=== PATIENT | female | born 1955 | race Caucasian/White ===

== ENCOUNTER 2018-05-09 15:22 | Observation (INO) ==
[2018-05-09] MEDS ORDERED: MORPHINE SULFATE 2 MG/ML DISP.SYRIN IV ONE (15:35)
[2018-05-09] MEDS ORDERED: MORPHINE SULFATE 2 MG/ML DISP.SYRIN ONE (15:42)
[2018-05-09 15:58] LABS: Hematocrit 46.1 % (37.0-47.0); Hemoglobin 15.2 gm/dL (12.5-16.0); Mean Cell Volume 87.1 fl (78-100); Mean Corpuscular Hemoglobin 28.7 pg (27-31); Mean Platelet Volume 8.7 fl (8-12.5); Neutrophil # 6.4 K/mm3 (1.3-6.0); Neutrophil % 72.1 % (42-75.0); Platelet Count 398 K/mm3 (150-450); Red Blood Count 5.29 M/mm3 (4.2-5.4); Red Cell Distribution Width 13.4 % (11.5-14.0); White Blood Count 8.8 K/mm3 (4.0-10.5)
[2018-05-09 16:10] LABS: ALT 13 U/L (19-67); AST 12 U/L (0-48); Albumin * 3.6 gm/dl (3.4-5.0); Alkaline Phosphatase * 106 U/L (50-170); Anion Gap 9.9 mmol/L (6.8-13.8); BUN/Creatinine Ratio 2.9 (9.0-21.6); Bilirubin, Total 0.6 mg/dL (0.0-1.1); Blood Urea Nitrogen 2 mg/dL (3-23); Ca. Corrected For Albumin 9.2 mg/dL (8.4-10.2); Calcium * 9.2 mg/dL (7.9-10.9); Carbon Dioxide 29.9 mmol/L (24-32.6); Chloride 100 mmol/L (97-106); Glucose * 103 mg/dL (70-110); Lipase 109 U/L (73-393); Potassium 3.8 mmol/L (3.4-4.6); Sodium 136 mmol/L (132-142); Total Protein 7.4 gm/dL (6.2-8.2); Troponin I Less than 0.017 ng/mL (0.00-0.10)
[2018-05-09] MEDS ORDERED: ONDANSETRON HCL/PF 2 MG/ML VIAL IV ONE (16:26)
[2018-05-09] MEDS ORDERED: ONDANSETRON HCL/PF 2 MG/ML VIAL ONE (16:26)
[2018-05-09] MEDS ORDERED: HYDROmorphone HCL 1 MG/ML DISP.SYRIN IV ONE ×2 (16:27→19:25)
[2018-05-09] MEDS ORDERED: HYDROmorphone HCL 1 MG/ML DISP.SYRIN ONE ×2 (16:45→19:27)
[2018-05-09] MEDS ORDERED: NORMAL SALINE 1,000 ML IV PRN (17:10)
[2018-05-09] MEDS ORDERED: ALBUTEROL SULFATE/IPRATROPIUM 3 ML NEBU IH ONE ×2 (17:22→17:38)
[2018-05-09 17:27] LABS: Urine Bilirubin Negative (NEGATIVE); Urine Blood 25 /ul (NEGATIVE); Urine Ketone Negative (NEGATIVE); Urine Nitrite Negative (NEGATIVE); Urine Protein Negative (NEGATIVE); Urine Urobilinogen Normal (NORMAL)
[2018-05-09 17:34] LABS: Urine Appearance Clear (CLEAR); Urine Bacteria TRACE; Urine Color Yellow; Urine RBC TRACE /hpf (0-5); Urine WBC TRACE /hpf (0-5)
[2018-05-09] MEDS ORDERED: METHYLPREDNISOLONE SOD SUCC/PF 40 MG/ML VIAL IV ONE (17:54)
[2018-05-09] MEDS ORDERED: METHYLPREDNISOLONE SOD SUCC/PF 40 MG/ML VIAL ONE (17:58)
[2018-05-09] MEDS ORDERED: ALBUTEROL SULFATE 2.5 MG/0.5 ML VIAL.NEB IH ONE ×2 (18:22→18:25)
--- NOTE | 2018-05-09 19:49 | ERNOTE ---
Chest Pain/Cardiac HPI Date of Service: 05/09/18 Chief Complaint: Chest Pain Time Seen by Provider: 05/09/18 15:30 Source: patient Exam Limitations: no limitations Immunizations: IMMUNIZATION HX Immunizations Up to Date No History of Influenza Vaccine No Hx Pneumococcal Vaccination No Allergies/Adverse Reactions: Allergies ketorolac tromethamine [From Toradol] Allergy (Intermediate, Verified 11/15/15 08:40) HIVES, BREATHING PROBLEMS Home Medications: HOME MEDICATIONS Aspirin [Aspirin Enteric Coated] 81 mg PO DAILY 11/04/15 [Last Taken Unknown] Cholecalciferol (Vitamin D3) [Vitamin D3] 2,000 unit PO DAILY 11/04/15 [Last Taken Unknown] Lansoprazole [Prevacid] 15 mg PO DAILY 11/04/15 [Last Taken Unknown] Simvastatin [Zocor] 40 mg PO HS 11/04/15 [Last Taken Unknown] losartan 50 mg tablet 50 mg PO DAILY #90 tab 03/05/18 [Last Taken Unknown] atorvastatin 40 mg tablet 40 mg PO DAILY #90 tab 03/20/18 [Last Taken Unknown] Narrative: Patient presents for CP for the last week. It is right sided and radiates across her chest. She also feel SOB with it. Family relates increasing trouble breathing and worsening generalized weakness to the point that she now cannot get around. She has not been seen for this. Gets occasional sharp abdominal pains. No hemoptysis. CP is severe and constant. Nothing really seems to make it better or worse. Timing: constant Severity/Quality: severe Location: other - see HPI Chest Pain Radiation: other - across chest Activities at Onset: none Modifying Factors - Improves: Present: nothing Modifying Factors - Worsens: Present: nothing Nitro Today/Relief: no nitro taken today Aspirin Treatment Today: 325 mg x 1 Associated Symptoms: Present: cough, abdominal pain, weakness. Absent: fever/ chills, vomiting Prior Treatment: Denies: recently seen Review of Systems - Review of Systems Constitutional: Absent: fever Respiratory: Present: shortness of breath Cardiology: Present: chest pain Gastrointestinal/Abdominal: Present: abdominal pain Genitourinary: Absent: dysuria Neurological: Present: weakness All Other Systems: All systems neg except as marked Medical History (Last Updated 05/09/18 @ 19:30 by Scott Mathews MD) Stroke Social History: Preferred Language Wolof Do you have any adventist or No cultural preference? Smoking Status Current every day smoker Abuse History No History of abuse Psych History No pertinent hx Alcohol Use none Drug Use none Physical Exam - Physical Exam General Appearance: Present: alert, other - mild distress d/t pain Head Exam: Present: normal inspection, no evidence of injury Eye Exam: Normal inspection: bilateral, PERRL: bilateral Ears, Nose, Throat: Present: normal ENT inspection Neck: Present: normal inspection Respiratory: Present: no accessory muscle use, other - faint wheezes Cardiovascular/Chest: Present: regular rate, rhythm, normal peripheral pulses Gastrointestinal/Abdominal: Present: normal bowel sounds, nontender, nondistended, soft Back Exam: Absent: CVA tenderness (R), CVA tenderness (L) Extremity Exam: Present: non-tender Neurological Exam: Present: alert, other - there is significant generalized weakness, no findings of acute stroke Skin Exam: Present: normal color, warm/dry ED Progress - Results and Orders Patient's Lab Results:: I have reviewed the patient's lab results. - Vital Signs Patient's Vital Signs:: I have reviewed the patient's vital signs. Vital Signs: Vital Signs 05/09/18 15:30 05/09/18 15:54 05/09/18 16:00 Temperature 36.8 C Pulse Rate 102 H 93 97 Respiratory Rate 16 Blood Pressure 142/98 H 155/98 H O2 Sat by Pulse Oximetry 94 05/09/18 16:48 05/09/18 17:05 05/09/18 17:39 Temperature Pulse Rate 82 84 82 Respiratory Rate 16 16 16 Blood Pressure 99/59 109/77 O2 Sat by Pulse Oximetry 89 L 92 L 98 05/09/18 17:45 05/09/18 18:08 05/09/18 18:26 Temperature Pulse Rate 83 96 91 Respiratory Rate 16 16 Blood Pressure 126/66 116/67 O2 Sat by Pulse Oximetry 99 90 L 93 05/09/18 18:28 05/09/18 18:52 Temperature Pulse Rate 91 87 Respiratory Rate 18 16 Blood Pressure 121/68 97/58 O2 Sat by Pulse Oximetry 91 L 96 - EKG EKG read: Interp. by me EKG Comments: NSR rate 99. Non-specific changes, no STEMI - X-Ray X-Ray #1 X-Ray: chest Interpretation: Interp. by me X-ray Comments: I reviewed official radiology report - CT/Ultrasound CT/Ultrasound Narrative: I reviewed official radiology report - Progress/Reassessment Chief Complaint: Chest Pain Progress Note-Subjective: 05/09/18 19:39 Patient was given IV solumedrol and nebs. With O2 sats 97%. I spoke with Dr Hines. Given the need for w/u of the mass it was felt she would need to be transferred. i called [facility] and Dr Archibald accepted transfer bt they are on bypass and cannot accept her until 7am tomorrow and they requested that we plan on initiating the transfer to [facility] at 7am tomorrow - she has already been accepted to [facility] and nursing just needs to call in the morning to let them know she is on her way. Given this Dr Hines agreed to admit the patient obs to care for her in the hospital setting until tomorrow as an obs patient. Patient and family understand and are agreeable. Departure Clinical Impression: Acute hypoxemic respiratory failure, Lung mass - Departure Disposition: Still a patient Condition: Fair
[2018-05-09] MEDS ORDERED: ALBUTEROL SULFATE/IPRATROPIUM 3 ML NEBU IH PRN (20:47)
--- NOTE | 2018-05-09 20:47 | HP ---
Chief Complaint - Chief Complaint Date of Service: 05/09/18 Time of Service: 20:25 Chief Complaint: chest pain/shortness of breath History of Present Illness: Cassi Ulloa, is a 61-year-old white female, patient of Dr. Simpson, with past medical history of hyperlipidemia, hypertension, CVA, tobacco abuse, who was admitted on 05/09/2018 because of chest pain and shortness of breath. The patient for the last 1 week has been having chest pain across her upper chest associated with shortness of breath and at times wheezing. The pain today got unbearable and so she went to our emergency room. She has not had a good appetite lately and has been losing weight. She described it as sharp 10 over 10 radiating to the lateral side of her right chest not associated with fever or chills. She is a smoker since she was 14 years old and has cut down on her cigarette consumption from 4 packs a day to 2 packs a day. She has been coughing thick sputum but mostly clear. She says she never knew she had COPD and was never on any inhalers or nebulizers. In the emergency room she was found to be hypoxic with oxygen saturation in the 80s. Her her ABG showed a pH of 7.40, PCO2 of 39.6 PO2 of 53.9, bicarbonate of 23.9, O2 sat of 88%. Her CXR showed -1. LOBULATED SOFT TISSUE MASS IN THE RIGHT UPPER LOBE LATERAL ASPECT WITH APPARENT BONY DESTRUCTIVE CHANGE OF THE ADJACENT RIB. RECOMMEND FURTHER CHARACTERIZATION WITH CT SCAN OF THE CHEST. 2. OTHERWISE NO ACUTE CARDIOPULMONARY ABNORMALITY IDENTIFIED. Her CTS showed-1. 4.6 MM PLEURAL-BASED NODULE IN THE RIGHT UPPER LOBE WITH ASSOCIATED INVASION AND DESTRUCTION OF THE ADJACENT RIGHT FOURTH RIB. THIS SUGGESTS A PLEURAL-BASED PRIMARY LUNG LESION. 2. 2 NODULAR DENSITIES WITHIN THE SUPERIOR SEGMENT OF THE RIGHT LOWER LOBE; METASTASIS VERSUS SECOND PRIMARY. 3. DIFFUSE CENTRILOBULAR EMPHYSEMATOUS CHANGES. 4. FOLLOW-UP PET/CT SCAN IS RECOMMENDED. She was given breathing treatment and 1 dose of IV solumedrol, O2 and then admited under observation for pain control and is for transfer to [facility] in the morning for further work up and treatment. Medical History (Last Updated 05/09/18 @ 22:54 by Iris Clay RN) GERD (gastroesophageal reflux disease) Heart murmur Stroke Surgical History: Surgical History (Last Updated 05/09/18 @ 22:53 by Iris Clay RN) H/O tubal ligation History of tonsillectomy Hx of cholecystectomy Family History: Family History (Last Updated 05/09/18 @ 23:02 by Iris Clay, RN) Sister Rheumatoid arthritis Brain tumor Kidney disease Lupus Heart problem Breast cancer Hypertension CVA (cerebral vascular accident) Brother Heart problem Brother CVA (cerebral vascular accident) Brother Brain tumor Mother Stomach cancer Father Myocardial infarction Social History: Preferred Language Albanian Do you have any anglican or No cultural preference? Smoking Status Current every day smoker Abuse History No History of abuse Psych History No pertinent hx Alcohol Use none Drug Use none Review Of Systems (GEN) - Review of Systems Generalized/Overall Review: Present: Weakness, Weight loss. Absent: Chills, Fever Respiratory: Present: Cough, Shortness of Breath. Absent: Orthopnea Cardiac: Present: Chest Pain. Absent: Edema, Palpitations Abdominal: Absent: Nausea, Vomiting Genitourinary: Absent: Urgency, Frequency Musculoskeletal: Absent: Joint Pain Immunizations: IMMUNIZATION HX Immunizations Up to Date No History of Influenza Vaccine No Hx Pneumococcal Vaccination No Allergies/Adverse Reactions: Allergies Allergy/AdvReac Type Severity Reaction Status Date / Time ketorolac tromethamine Allergy Intermediate HIVES, Verified 05/09/18 20:18 [From Toradol] BREATHING PROBLEMS lisinopril Allergy Intermediate Shortness Verified 05/09/18 20:19 of Breath Home Medications: HOME MEDICATIONS Aspirin [Aspirin Enteric Coated] 81 mg PO DAILY 11/04/15 [Last Taken Unknown] Cholecalciferol (Vitamin D3) [Vitamin D3] 2,000 unit PO DAILY 11/04/15 [Last Taken Unknown] Lansoprazole [Prevacid] 15 mg PO DAILY 11/04/15 [Last Taken Unknown] Atorvastatin Calcium 40 mg PO QPM 05/09/18 [Last Taken Unknown] Losartan Potassium [Cozaar] 50 mg PO QPM 05/09/18 [Last Taken 05/09/18 14:30 50 mg] Exam - Exam Vital Signs: Vital Signs - Last Taken Temp 36.8 C 05/09/18 15:30 Pulse 98 05/09/18 19:31 Resp 18 05/09/18 19:31 BP 107/65 05/09/18 19:31 Pulse Ox 91 L 05/09/18 19:31 Constitutional: Present: Alert, Oriented x3, Cooperative ENT Exam: Present: hearing grossly normal Eye Exam: bilateral eye: normal inspection, PERRL, EOMI Neck: Present: supple Respiratory: Present: decreased breath sounds, wheezing - occasional, No rales Cardiovascular/Chest: Present: regular rate, rhythm, no JVD, no murmur Abdomen: Present: Normal bowel sounds, soft, nontender, nondistended Extremity: Present: no pedal edema, no calf tenderness Diagnostic Studies: Abnormal Lab Results 05/09/18 05/09/18 05/09/18 Range/Units 15:45 15:45 16:55 Immature Gran % (Auto) 0.50 H (0.001-0.429) % Immature Gran # (Auto) 0.04 H (0.000-0.0310) K/mm3 Lymphocytes % 18.0 L (20-51) % Neutrophils # 6.4 H (1.3-6.0) K/mm3 pO2 (83.0-108.0) mmHg Total CO2 (19.0-24.0) mmol/L ABG O2 Sat (Measured) (94.0-98.0) % BUN 2 L (3-23) mg/dL BUN/Creatinine Ratio 2.9 L (9.0-21.6) ALT 13 L (19-67) U/L Urine Blood 25 H (NEGATIVE) /ul Urine WBC Trace H (0-5) /hpf 05/09/18 Range/Units Unknown Immature Gran % (Auto) (0.001-0.429) % Immature Gran # (Auto) (0.000-0.0310) K/mm3 Lymphocytes % (20-51) % Neutrophils # (1.3-6.0) K/mm3 pO2 53.9 L (83.0-108.0) mmHg Total CO2 25.1 H (19.0-24.0) mmol/L ABG O2 Sat (Measured) 88.1 L (94.0-98.0) % BUN (3-23) mg/dL BUN/Creatinine Ratio (9.0-21.6) ALT (19-67) U/L Urine Blood (NEGATIVE) /ul Urine WBC (0-5) /hpf Laboratory Results WBC 8.8 K/mm3 (4.0-10.5) 05/09/18 15:45 RBC 5.29 M/mm3 (4.2-5.4) 05/09/18 15:45 Hgb 15.2 gm/dL (12.5-16.0) 05/09/18 15:45 Hct 46.1 % (37.0-47.0) 05/09/18 15:45 MCV 87.1 fl (78-100) 05/09/18 15:45 MCH 28.7 pg (27-31) 05/09/18 15:45 MCHC 33.0 g/dl (32-36) 05/09/18 15:45 RDW 13.4 % (11.5-14.0) 05/09/18 15:45 Plt Count 398 K/mm3 (150-450) 05/09/18 15:45 MPV 8.7 fl (8-12.5) 05/09/18 15:45 Immature Gran % (Auto) 0.50 % (0.001-0.429) H 05/09/18 15:45 Immature Gran # (Auto) 0.04 K/mm3 (0.000-0.0310) H 05/09/18 15:45 Neutrophils % 72.1 % (42-75.0) 05/09/18 15:45 Lymphocytes % 18.0 % (20-51) L 05/09/18 15:45 Monocytes % 7.4 % (0.0-9) 05/09/18 15:45 Eosinophils % 1.5 % (0.0-3.0) 05/09/18 15:45 Basophils % 0.5 % (0.0-1.0) 05/09/18 15:45 Nucleated RBC % 0.0 k/mm3 (0-1) 05/09/18 15:45 Neutrophils # 6.4 K/mm3 (1.3-6.0) H 05/09/18 15:45 Lymphocytes # 1.59 k/mm3 (1.5-3.5) 05/09/18 15:45 Monocytes # 0.7 k/mm3 (0.0-1.0) 05/09/18 15:45 Eosinophils # 0.1 k/mm3 (0.0-0.7) 05/09/18 15:45 Absolute Basophils 0.0 k/mm3 (0.0-0.1) 05/09/18 15:45 D-Dimer 0.45 ug/mL (0.19-0.49) 05/09/18 15:45 pCO2 39.6 mmHg (32.0-45.0) 05/09/18 Unknown pO2 53.9 mmHg (83.0-108.0) L 05/09/18 Unknown HCO3 23.9 mmol/L (21.0-28.0) 05/09/18 Unknown Total CO2 25.1 mmol/L (19.0-24.0) H 05/09/18 Unknown Base Excess -0.8 mmol/L (-2.0-3.0) 05/09/18 Unknown ABG pH 7.40 (7.35-7.45) 05/09/18 Unknown ABG O2 Sat (Measured) 88.1 % (94.0-98.0) L 05/09/18 Unknown Sodium 136 mmol/L (132-142) 05/09/18 15:45 Plasma Sodium 136 mmol/L (130-142) 05/09/18 15:45 Potassium 3.8 mmol/L (3.4-4.6) 05/09/18 15:45 Chloride 100 mmol/L (97-106) 05/09/18 15:45 Carbon Dioxide 29.9 mmol/L (24-32.6) 05/09/18 15:45 Anion Gap 9.9 mmol/L (6.8-13.8) 05/09/18 15:45 BUN 2 mg/dL (3-23) L 05/09/18 15:45 Creatinine 0.69 mg/dL (0.4-1.4) 05/09/18 15:45 Est GFR (Non-Af Amer) 91 mL/min (60-130) 05/09/18 15:45 BUN/Creatinine Ratio 2.9 (9.0-21.6) L 05/09/18 15:45 Random Glucose 103 mg/dL (70-110) 05/09/18 15:45 Calcium 9.2 mg/dL (7.9-10.9) 05/09/18 15:45 Calcium Adj for Albumin 9.2 mg/dL (8.4-10.2) 05/09/18 15:45 Total Bilirubin 0.6 mg/dL (0.0-1.1) 05/09/18 15:45 AST 12 U/L (0-48) 05/09/18 15:45 ALT 13 U/L (19-67) L 05/09/18 15:45 Alkaline Phosphatase 106 U/L (50-170) 05/09/18 15:45 Troponin I Less than 0.017 ng/mL (0.00-0.10) 05/09/18 15:45 Total Protein 7.4 gm/dL (6.2-8.2) 05/09/18 15:45 Albumin 3.6 gm/dl (3.4-5.0) 05/09/18 15:45 Lipase 109 U/L (73-393) 05/09/18 15:45 Urine Color Yellow 05/09/18 16:55 Urine Appearance Clear (CLEAR) 05/09/18 16:55 Urine pH 6.0 pH (5.0-7.0) 05/09/18 16:55 Ur Specific [place] 1.010 SP.GR. (1.005-1.010) 05/09/18 16:55 Urine Protein Negative mg/dL (NEGATIVE) 05/09/18 16:55 Urine Glucose (UA) Negative mg/dL (NEGATIVE) 05/09/18 16:55 Urine Ketones Negative mg/dL (NEGATIVE) 05/09/18 16:55 Urine Blood 25 /ul (NEGATIVE) H 05/09/18 16:55 Urine Nitrate Negative (NEGATIVE) 05/09/18 16:55 Urine Bilirubin Negative mg/dl (NEGATIVE) 05/09/18 16:55 Urine Urobilinogen Normal EU/dl (NORMAL) 05/09/18 16:55 Ur Leukocyte Esterase Negative /ul (NEGATIVE) 05/09/18 16:55 Urine RBC Trace /hpf (0-5) 05/09/18 16:55 Urine WBC Trace /hpf (0-5) H 05/09/18 16:55 Ur Epithelial Cells Trace /hpf (0-5) 05/09/18 16:55 Urine Bacteria Trace (NONE) 05/09/18 16:55 Urine Culture Comments Culture to follow 05/09/18 16:55 Assessment/Plan - Assessment/Plan (1) Acute hypoxemic respiratory failure Assessment: due to COPD exacerbation /lung mass Problem: Acute (2) Lung mass Problem: Acute (3) COPD (chronic obstructive pulmonary disease) Assessment: continue with O2 breathing treatment PRN Problem: Chronic Qualifiers: COPD type: emphysema Emphysema type: centrilobular Qualified Code(s): J43.2 - Centrilobular emphysema (4) Hypertension Problem: Chronic Qualifiers: Hypertension type: essential hypertension Qualified Code(s): I10 - Essential (primary) hypertension (5) Hyperlipidemia Problem: Chronic (6) History of CVA (cerebrovascular accident) Problem: Chronic
[2018-05-09] MEDS ORDERED: ALBUTEROL SULFATE 200 PUFF INHALER IH PRN (20:48)
[2018-05-09] MEDS ORDERED: ACETAMINOPHEN 325 MG TABLET PO PRN (20:51)
[2018-05-10] MEDS: HYDROmorphone HCL 1 MG/ML DISP.SYRIN IV PRN ×2 (00:56→07:51)
[2018-05-10] MEDS ORDERED: ALBUTEROL SULFATE 2.5 MG/0.5 ML VIAL.NEB IH PRN (07:12)
--- NOTE | 2018-05-10 08:19 | DS ---
Transfer Discharge Summary - Diagnosis(s)/Problems (1) Acute hypoxemic respiratory failure Problem: Resolved (2) Lung mass Problem: Acute (3) COPD (chronic obstructive pulmonary disease) Problem: Chronic (4) Hypertension Problem: Chronic (5) Hyperlipidemia Problem: Chronic (6) History of CVA (cerebrovascular accident) Problem: Chronic - Course Description of Stay: Cassi Ulloa, is a 61-year-old white female, patient of Dr. Simpson, with past medical history of hyperlipidemia, hypertension, CVA, tobacco abuse, who was admitted on 05/09/2018 because of chest pain and shortness of breath. The patient for the last 1 week has been having chest pain across her upper chest associated with shortness of breath and at times wheezing. The pain today got unbearable and so she went to our emergency room. She has not had a good appetite lately and has been losing weight. She described it as sharp 10 over 10 radiating to the lateral side of her right chest not associated with fever or chills. She is a smoker since she was 14 years old and has cut down on her cigarette consumption from 4 packs a day to 2 packs a day. She has been coughing thick sputum but mostly clear. She says she never knew she had COPD and was never on any inhalers or nebulizers. In the emergency room she was found to be hypoxic with oxygen saturation in the 80s. Her her ABG showed a pH of 7.40, PCO2 of 39.6 PO2 of 53.9, bicarbonate of 23.9, O2 sat of 88%. Her CXR showed -1. LOBULATED SOFT TISSUE MASS IN THE RIGHT UPPER LOBE LATERAL ASPECT WITH APPARENT BONY DESTRUCTIVE CHANGE OF THE ADJACENT RIB. RECOMMEND FURTHER CHARACTERIZATION WITH CT SCAN OF THE CHEST. 2. OTHERWISE NO ACUTE CARDIOPULMONARY ABNORMALITY IDENTIFIED. Her CTS showed-1. 4.6 MM PLEURAL-BASED NODULE IN THE RIGHT UPPER LOBE WITH ASSOCIATED INVASION AND DESTRUCTION OF THE ADJACENT RIGHT FOURTH RIB. THIS SUGGESTS A PLEURAL-BASED PRIMARY LUNG LESION. 2. 2 NODULAR DENSITIES WITHIN THE SUPERIOR SEGMENT OF THE RIGHT LOWER LOBE; METASTASIS VERSUS SECOND PRIMARY. 3. DIFFUSE CENTRILOBULAR EMPHYSEMATOUS CHANGES. 4. FOLLOW-UP PET/CT SCAN IS RECOMMENDED. She was given breathing treatment and 1 dose of IV solumedrol, O2 and then admitted under observation . She saturated between 89-95% on 2 L NC and received 2 doses of IV Dilaudid overnight. Her BP when she left was 103/58. Procedures Performed: none - Results and Findings Results and Findings: Laboratory Results - last 24 hr 05/09/18 05/09/18 05/09/18 15:45 15:45 15:45 WBC 8.8 RBC 5.29 Hgb 15.2 Hct 46.1 MCV 87.1 MCH 28.7 MCHC 33.0 RDW 13.4 Plt Count 398 MPV 8.7 Immature Gran % (Auto) 0.50 H Immature Gran # (Auto) 0.04 H Neutrophils % 72.1 Lymphocytes % 18.0 L Monocytes % 7.4 Eosinophils % 1.5 Basophils % 0.5 Nucleated RBC % 0.0 Neutrophils # 6.4 H Lymphocytes # 1.59 Monocytes # 0.7 Eosinophils # 0.1 Absolute Basophils 0.0 D-Dimer 0.45 pCO2 pO2 HCO3 Total CO2 Base Excess ABG pH ABG O2 Sat (Measured) Sodium 136 Plasma Sodium 136 Potassium 3.8 Chloride 100 Carbon Dioxide 29.9 Anion Gap 9.9 BUN 2 L Creatinine 0.69 Est GFR (Non-Af Amer) 91 BUN/Creatinine Ratio 2.9 L Random Glucose 103 Calcium 9.2 Calcium Adj for Albumin 9.2 Total Bilirubin 0.6 AST 12 ALT 13 L Alkaline Phosphatase 106 Troponin I Less than 0.017 Total Protein 7.4 Albumin 3.6 Lipase 109 Urine Color Urine Appearance Urine pH Ur Specific [place] Urine Protein Urine Glucose (UA) Urine Ketones Urine Blood Urine Nitrate Urine Bilirubin Urine Urobilinogen Ur Leukocyte Esterase Urine RBC Urine WBC Ur Epithelial Cells Urine Bacteria Urine Culture Comments 05/09/18 05/09/18 16:55 Unknown WBC RBC Hgb Hct MCV MCH MCHC RDW Plt Count MPV Immature Gran % (Auto) Immature Gran # (Auto) Neutrophils % Lymphocytes % Monocytes % Eosinophils % Basophils % Nucleated RBC % Neutrophils # Lymphocytes # Monocytes # Eosinophils # Absolute Basophils D-Dimer pCO2 39.6 pO2 53.9 L HCO3 23.9 Total CO2 25.1 H Base Excess -0.8 ABG pH 7.40 ABG O2 Sat (Measured) 88.1 L Sodium Plasma Sodium Potassium Chloride Carbon Dioxide Anion Gap BUN Creatinine Est GFR (Non-Af Amer) BUN/Creatinine Ratio Random Glucose Calcium Calcium Adj for Albumin Total Bilirubin AST ALT Alkaline Phosphatase Troponin I Total Protein Albumin Lipase Urine Color Yellow Urine Appearance Clear Urine pH 6.0 Ur Specific [place] 1.010 Urine Protein Negative Urine Glucose (UA) Negative Urine Ketones Negative Urine Blood 25 H Urine Nitrate Negative Urine Bilirubin Negative Urine Urobilinogen Normal Ur Leukocyte Esterase Negative Urine RBC Trace Urine WBC Trace H Ur Epithelial Cells Trace Urine Bacteria Trace Urine Culture Comments Culture to follow - Medications Medications: Active Medications Hydromorphone HCl (Dilaudid) 1 mg IV Q4H PRN PRN Reason: Pain Stop: 06/08/18 20:51 Last Admin: 05/10/18 07:51 Dose: 1 mg Sodium Chloride (Sodium Chloride 0.9%) 1,000 mls @ 500 mls/hr IV .Q2H PRN PRN Reason: HYDRATION Stop: 06/08/18 17:11 Last Infusion: 05/09/18 19:24 Dose: Infused Discontinued Medications Albuterol Sulfate (Albuterol Sulfate 2.5 Mg/0.5ml) 2.5 mg IH ONCE ONE Stop: 05/09/18 18:23 Last Admin: 05/09/18 18:26 Dose: 2.5 mg Albuterol/Ipratropium (Duoneb 2.5-0.5mg/3ml Soln) 3 ml IH ONCE ONE Stop: 05/09/18 17:23 Last Admin: 05/09/18 17:39 Dose: 3 ml Hydromorphone HCl (Dilaudid) 0.5 mg IV ONCE ONE Stop: 05/09/18 16:28 Last Admin: 05/09/18 17:56 Dose: 0.5 mg Hydromorphone HCl (Dilaudid) 0.5 mg IV ONCE ONE Stop: 05/09/18 19:26 Last Admin: 05/09/18 19:29 Dose: 0.5 mg Methylprednisolone Sodium Succinate (Solu-Medrol) 80 mg IV ONCE ONE Stop: 05/09/18 17:55 Last Admin: 05/09/18 18:00 Dose: 80 mg Morphine Sulfate (Morphine Sulfate) 2 mg IV ONCE ONE Stop: 05/09/18 15:36 Last Admin: 05/09/18 15:44 Dose: 2 mg Ondansetron HCl (Zofran) 4 mg IV ONCE ONE Stop: 05/09/18 16:27 Last Admin: 05/09/18 16:42 Dose: 4 mg - Disposition Disposition: Short Term Hospital Inpatient Condition: Fair Discharge Date: 05/10/18 Discharge Time: 08:00
[2018-05-10 15:07] VITALS: BP 103/58
== END 2018-05-10 08:20 | disposition short-term general hospital (02) ==
LOC: MS 15:22 → ER 15:22 → MS 19:40
PROVIDERS: ADMIT Internal Medicine; ATTEND Internal Medicine
DX: F17.210 Nicotine dependence, cigarettes, uncomplicated; R91.8 Other nonspecific abnormal finding of lung field; J44.1 Chronic obstructive pulmonary disease with (acute) exacerbation; J96.21 Acute and chronic respiratory failure with hypoxia; R53.1 Weakness; Z86.73 Personal history of transient ischemic attack (TIA), and cerebral infarction without residual deficits; Z68.23 Body mass index [BMI] 23.0-23.9, adult; E78.5 Hyperlipidemia, unspecified; I10 Essential (primary) hypertension
CPT/HCPCS: 36415; 36600; 71010; 71045; 71260; 80053; 81001; 82803; 83690; 84484; 85025; 85379; 87086; 93005; 94640; 94664; 96361; 96365; 96375; 96376; 99285; G0378; J2405